=== PATIENT | female | born 1945 | race Caucasian/White ===

== ENCOUNTER 2017-08-06 13:45 | Observation (INO) | payer OTHER ==
[2017-08-06] MEDS: ZOCOR TAB 20 MG PO SCH ×2 (16:23→20:27)
[2017-08-06] MEDS ORDERED: NS 1000 ML 1,000 ML ONE (16:25)
[2017-08-06] MEDS: NS 1000 ML 1,000 ML IV SCH (16:40)
[2017-08-06 16:45] LABS: BASOPHILS # (AUTO) 0.1 X10^3/uL (0.0-0.1); BASOPHILS % (AUTO) 1.3 % (0.2-1.0); EOSINOPHILS # (AUTO) 0.2 x10^3/uL (0.0-0.2); HEMATOCRIT 36.3 % (36.0-47.0); HEMOGLOBIN 12.4 g/dL (12.0-16.0); LYMPHOCYTES % (AUTO) 31.1 % (21.0-51.0); MEAN CORPUSCULAR HEMOGLOBIN 29.4 pg (27.0-34.0); MEAN CORPUSCULAR HGB CONC 34.1 g/dL (33.0-35.0); MEAN CORPUSCULAR VOLUME 86.3 fL (80.0-100.0); MEAN PLATELET VOLUME 8.5 fL (7.4-11.0); MONOCYTES # (AUTO) 0.4 x10^3/uL (0.3-0.8); MONOCYTES % (AUTO) 6.7 % (0.0-13.0); NEUTROPHILS # (AUTO) 3.7 x10^3/uL (2.2-4.8); NEUTROPHILS % (AUTO) 57.9 % (42.0-75.0); PLATELET COUNT 336 X10^3/uL (150.0-450.0); RED CELL DISTRIBUTION WIDTH 12.9 % (11.6-16.5); WHITE BLOOD COUNT 6.4 X10^3/uL (3.6-10.0)
--- NOTE | 2017-08-06 16:48 | RAD ---
Examination: Portable AP chest History: Chest pain Findings: Normal heart size with clear lungs and pleural spaces. The trachea is deviated to the right at the thoracic inlet. Impression: No acute or significant pulmonary findings. Tracheal deviation as described may be relate d to thyroid enlargement or other left-sided neck mass formation. Correlate clinically with appropria te follow-up. Reported By:
[2017-08-06] MEDS: ANTIVERT TAB 25 MG PO PRN (16:50)
[2017-08-06 16:56] LABS: ALANINE AMINOTRANSFERASE 27 Units/L (12-78); ALBUMIN 4.1 g/dL (3.4-5.0); ALKALINE PHOSPHATASE 83 Units/L (46-116); ASPARTATE AMINO TRANSFERASE 18 Units/L (15-37); BLOOD UREA NITROGEN 23 mg/dL (7-18); CALCIUM 9.1 mg/dL (8.5-10.1); CARBON DIOXIDE 22.9 mmol/L (21-32); CHLORIDE 103 mmol/L (98-107); COR NA(FOR HYPERGLY) 139 mmol/L (136-145); SODIUM 138 mmol/L (136-145); TOTAL PROTEIN 8.3 g/dL (6.4-8.2); eGFR BLACK RACES 47 (>60); eGFR NON BLACK RACES 39 (>60)
[2017-08-06 17:04] LABS: CKMB % 0.9 % (<4); CREATINE KINASE 110 Units/L (26-192); CREATINE KINASE MB < 1.0 ng/mL (0-4.0); TROPONIN I < 0.02 ng/mL (0-1.5)
[2017-08-06 17:53] VITALS: BMI 24.5
[2017-08-06 17:59] LABS: T4 (THYROXINE) 9.4 ug/dL (4.7-13.3); TSH (3RD GENERATION) 1.728 uIU/mL (0.358-3.74)
[2017-08-06 20:38] LABS: CREATINE KINASE 102 Units/L (26-192); CREATINE KINASE MB < 1.0 ng/mL (0-4.0); TROPONIN I < 0.02 ng/mL (0-1.5)
[2017-08-07 01:44] LABS: CKMB % 1.1 % (<4); CREATINE KINASE 95 Units/L (26-192); CREATINE KINASE MB < 1.0 ng/mL (0-4.0); TROPONIN I < 0.02 ng/mL (0-1.5)
[2017-08-07 04:22] LABS: BASOPHILS # (AUTO) 0.1 X10^3/uL (0.0-0.1); BASOPHILS % (AUTO) 1.3 % (0.2-1.0); EOSINOPHILS # (AUTO) 0.3 x10^3/uL (0.0-0.2); EOSINOPHILS % (AUTO) 4.7 % (0.9-2.9); HEMATOCRIT 34.7 % (36.0-47.0); HEMOGLOBIN 11.8 g/dL (12.0-16.0); LYMPHOCYTES # (AUTO) 1.9 X10^3/uL (1.3-2.9); LYMPHOCYTES % (AUTO) 35.1 % (21.0-51.0); MEAN CORPUSCULAR HEMOGLOBIN 29.2 pg (27.0-34.0); MEAN PLATELET VOLUME 8.4 fL (7.4-11.0); MONOCYTES # (AUTO) 0.4 x10^3/uL (0.3-0.8); MONOCYTES % (AUTO) 7.1 % (0.0-13.0); NEUTROPHILS # (AUTO) 2.9 x10^3/uL (2.2-4.8); NEUTROPHILS % (AUTO) 51.8 % (42.0-75.0); PLATELET COUNT 300 X10^3/uL (150.0-450.0); RED BLOOD COUNT 4.04 X10^6/uL (3.5-5.4); WHITE BLOOD COUNT 5.5 X10^3/uL (3.6-10.0)
[2017-08-07 04:36] LABS: ALANINE AMINOTRANSFERASE 26 Units/L (12-78); ALBUMIN 3.5 g/dL (3.4-5.0); ALKALINE PHOSPHATASE 73 Units/L (46-116); ASPARTATE AMINO TRANSFERASE 18 Units/L (15-37); BLOOD UREA NITROGEN 23 mg/dL (7-18); CALCIUM 8.3 mg/dL (8.5-10.1); CARBON DIOXIDE 23.9 mmol/L (21-32); CHLORIDE 107 mmol/L (98-107); CHOL/HDL RATIO 6.1 (0.0-5.0); CHOLESTEROL 227 mg/dL (0-200); COR NA(FOR HYPERGLY) 142 mmol/L (136-145); CREATININE 1.43 mg/dL (0.55-1.02); HDL CHOLESTEROL 37 mg/dL (40-60); SODIUM 142 mmol/L (136-145); TOTAL PROTEIN 7.2 g/dL (6.4-8.2); TRIGLYCERIDES 117 mg/dL (0-150); eGFR BLACK RACES 46 (>60); eGFR NON BLACK RACES 38 (>60)
[2017-08-07] MEDS: NS 1000 ML 1,000 ML IV SCH ×3 (06:02→21:19)
[2017-08-07] MEDS: ASPIRIN EC 81 MG PO SCH (09:15)
[2017-08-07] MEDS ORDERED: NS 1000 ML 2,000 ML IV ONE (09:32)
[2017-08-07] MEDS: COZAAR PO SCH (09:36)
[2017-08-07] MEDS: PriLOSEC PO SCH (09:36)
[2017-08-07] MEDS: HYDROCHLOROTHIAZIDE 25 MG TAB PO SCH (09:37)
[2017-08-07] MEDS: MUCOMYST 20% 200 MG/ML PO SCH ×2 (10:05→21:18)
[2017-08-07] MEDS ORDERED: PHENERGAN TAB 25 MG PO PRN (10:32)
[2017-08-07] MEDS ORDERED: ANTIVERT TAB 25 MG PO PRN (10:32)
[2017-08-07] MEDS ORDERED: PATIENT'S HOME MEDICATION (Losartan Potassium [Losartan Potassium] 1 TAB) PO SCH (10:45)
[2017-08-07] MEDS ORDERED: HYDROCHLOROTHIAZIDE 25 MG TAB PO SCH (11:00)
[2017-08-07] MEDS: OSCAL+D or CALTRATE+D PO SCH (11:23)
[2017-08-07 14:56] LABS: ALANINE AMINOTRANSFERASE 22 Units/L (12-78); ALBUMIN 3.2 g/dL (3.4-5.0); ALKALINE PHOSPHATASE 68 Units/L (46-116); ASPARTATE AMINO TRANSFERASE 15 Units/L (15-37); BLOOD UREA NITROGEN 19 mg/dL (7-18); CALCIUM 7.9 mg/dL (8.5-10.1); CARBON DIOXIDE 22.7 mmol/L (21-32); CHLORIDE 111 mmol/L (98-107); COR CA(FOR HYPOALB) 8.5 mg/dL (8.5-10.1); SODIUM 144 mmol/L (136-145); TOTAL PROTEIN 6.7 g/dL (6.4-8.2); eGFR BLACK RACES 57 (>60); eGFR NON BLACK RACES 47 (>60)
[2017-08-07] MEDS ORDERED: NS 100 ML IV 100 ML IV ONE (15:21)
--- NOTE | 2017-08-07 16:18 | CT ---
HISTORY: Mass seen on chest x-ray Study: CT soft tissue neck with contrast Comparison: Chest radiograph 08/06/2017 Technique: Multiple images of the neck were obtained after the administration of IV contrast. Dose r eduction techniques including Automated Exposure Control (AEC) and adjustment of mA and kV were utili zed. Findings: The visualized intracranial structures appear normal. The skull base and cervical spine are intact. T he facial bones appear grossly intact. The visualized paranasal sinuses and mastoid air cells are beatris ar. The lung apices are clear. The aerodigestive structures appear normal. The prevertebral soft tissues and paraspinal soft tissues are unremarkable. The epiglottis and laryngeal structures appear normal. No pathologically enlarged lymph nodes are identified. The parotid and submandibular glands appear normal. There is enlargement of the left thyroid lobe measuring up to 5 x 4.7 x 8 cm with substernal extensio n accounting for the radiographic abnormality. There is heterogeneous nodular enhancement coarse calc ification in the left lobe with a suspected large cystic and solid nodule measuring approximately 3 c m. This could be further evaluated with thyroid ultrasound if indicated. There is associated rightwar d tracheal deviation without stenosis. The right thyroid lobe is unremarkable. IMPRESSION: There is enlargement of the left thyroid lobe measuring up to 5 x 4.7 x 8 cm with substernal extensio n accounting for the radiographic abnormality. There is heterogeneous nodular enhancement coarse calc ification in the left lobe with a suspected large cystic and solid nodule measuring approximately 3 c m. This could be further evaluated with thyroid ultrasound if indicated. There is associated rightwar d tracheal deviation without stenosis. The right thyroid lobe is unremarkable. Reported By:
[2017-08-07] MEDS ORDERED: ZOCOR TAB 20 MG PO SCH (21:00)
[2017-08-07] MEDS ORDERED: MUCOMYST 20% 200 MG/ML ONE (21:11)
[2017-08-07] MEDS: ZOCOR TAB 20 MG PO SCH (21:18)
[2017-08-08 05:36] LABS: BASOPHILS # (AUTO) 0.1 X10^3/uL (0.0-0.1); BASOPHILS % (AUTO) 1.1 % (0.2-1.0); EOSINOPHILS # (AUTO) 0.3 x10^3/uL (0.0-0.2); EOSINOPHILS % (AUTO) 5.1 % (0.9-2.9); HEMATOCRIT 30.6 % (36.0-47.0); HEMOGLOBIN 10.5 g/dL (12.0-16.0); LYMPHOCYTES # (AUTO) 1.8 X10^3/uL (1.3-2.9); LYMPHOCYTES % (AUTO) 34.9 % (21.0-51.0); MEAN CORPUSCULAR HEMOGLOBIN 29.9 pg (27.0-34.0); MEAN CORPUSCULAR HGB CONC 34.4 g/dL (33.0-35.0); MEAN PLATELET VOLUME 9.2 fL (7.4-11.0); MONOCYTES # (AUTO) 0.4 x10^3/uL (0.3-0.8); NEUTROPHILS # (AUTO) 2.7 x10^3/uL (2.2-4.8); NEUTROPHILS % (AUTO) 51.9 % (42.0-75.0); PLATELET COUNT 268 X10^3/uL (150.0-450.0); RED BLOOD COUNT 3.51 X10^6/uL (3.5-5.4); RED CELL DISTRIBUTION WIDTH 12.9 % (11.6-16.5); WHITE BLOOD COUNT 5.2 X10^3/uL (3.6-10.0)
[2017-08-08 05:58] LABS: ALANINE AMINOTRANSFERASE 23 Units/L (12-78); ALBUMIN 3.1 g/dL (3.4-5.0); ALKALINE PHOSPHATASE 66 Units/L (46-116); ASPARTATE AMINO TRANSFERASE 14 Units/L (15-37); BLOOD UREA NITROGEN 14 mg/dL (7-18); CALCIUM 7.9 mg/dL (8.5-10.1); CARBON DIOXIDE 23.4 mmol/L (21-32); CHLORIDE 110 mmol/L (98-107); COR CA(FOR HYPOALB) 8.6 mg/dL (8.5-10.1); COR NA(FOR HYPERGLY) 143 mmol/L (136-145); CREATININE 1.13 mg/dL (0.55-1.02); SODIUM 143 mmol/L (136-145); TOTAL PROTEIN 6.5 g/dL (6.4-8.2); eGFR BLACK RACES > 60 (>60); eGFR NON BLACK RACES 50 (>60)
--- NOTE | 2017-08-08 09:38 | DR.UPDATE ---
H&P Update History and Physical Update: WAS ADMITTED FOR CHEST PAIN. A H&P WAS COMPLETED PRIOR TO ADMISSION. PATIENT HAS BEEN SEEN AND EXAMINED WITH NO CHANGES NOTED TO H&P. Changes noted: NO Yes with the following:
[2017-08-08] MEDS: COZAAR PO SCH (09:41)
[2017-08-08] MEDS: ASPIRIN EC 81 MG PO SCH (09:41)
[2017-08-08] MEDS: HYDROCHLOROTHIAZIDE 25 MG TAB PO SCH (09:41)
[2017-08-08] MEDS: MUCOMYST 20% 200 MG/ML PO SCH (09:41)
[2017-08-08] MEDS: OSCAL+D or CALTRATE+D PO SCH (09:42)
[2017-08-08] MEDS: PriLOSEC PO SCH (09:42)
[2017-08-08] MEDS: ANTIVERT TAB 25 MG PO PRN (09:42)
[2017-08-08 12:08] VITALS: BP 146/69
== END 2017-08-08 12:30 | disposition home or self-care (01) ==
LOC: UNDOADMOB 13:45 → OBS 13:45 → MED/SURG 08-07 13:21
PROVIDERS: ADMIT Internal Medicine; ATTEND Internal Medicine
DX: E01.0 Iodine-deficiency related diffuse (endemic) goiter (principal); J44.9 Chronic obstructive pulmonary disease, unspecified; R07.89 Other chest pain; R06.02 Shortness of breath; M19.90 Unspecified osteoarthritis, unspecified site
CPT/HCPCS: 36415; 70491; 71045; 80053; 80061; 82550; 82553; 84436; 84443; 84484; 85025; 93005; 93010; 94760; 99217; A4216; A4222; G0378; J7608